=== PATIENT | male | born 1980 | race Caucasian/White ===

== ENCOUNTER 2024-07-17 11:13 | Emergency (ER) | payer BC ==
[~2024-07-17] VITALS: Ht 170.2 cm; Wt 68.0 kg
[2024-07-17] MEDS ORDERED: ACETAMINOPHEN 500 MG TABLET ONE (11:51)
[2024-07-17] MEDS ORDERED: IBUPROFEN 600 MG TABLET ONE (11:52)
[2024-07-17] MEDS: ACETAMINOPHEN 500 MG TABLET PO ONE (11:54)
[2024-07-17] MEDS: IBUPROFEN 600 MG TABLET PO ONE (11:54)
[2024-07-17 12:09] LABS: HEMATOCRIT 42.2 % (36.7-47.1); HEMOGLOBIN 14.8 g/dL (12.5-16.3); LYMPHOCYTES # (AUTO) 1.3 K/uL (0.8-4.8); LYMPHOCYTES % (AUTO) 29.1 % (20.5-51.5); MEAN CORPUSCULAR HEMOGLOBIN 32.7 uug (23.8-33.4); MEAN CORPUSCULAR HGB CONC 35 g/dL (32.5-36.3); MEAN CORPUSCULAR VOLUME 93.3 fL (73.0-96.2); MONOCYTES # (AUTO) 0.3 K/uL (0.1-1.30); MONOCYTES % (AUTO) 7.6 % (0.0-11.0); NEUTROPHILS # (AUTO) 2.8 K/uL (1.8-8.9); NEUTROPHILS % (AUTO) 61.3 % (38.5-71.5); PLATELET COUNT (AUTO) 278 K/uL (152-348); RED BLOOD CELL COUNT(AUTO) 4.53 MIL/uL (4.06-5.63); RED CELL DISTRIBUTION WIDTH 13.5 % (12.1-16.2); WHITE BLOOD COUNT (AUTO) 4.6 K/uL (3.6-10.2)
[2024-07-17 12:19] LABS: DIFFERENTIAL COMMENT 1
[2024-07-17 12:24] LABS: *BILIRUBIN,URIN NEGATIVE (NEGATIVE); *BLOOD, URINE NEGATIVE (NEGATIVE); *CLARITY,URINE CLEAR (CLEAR); *COLOR,URINE YELLOW (YELLOW); *KETONES,URINE NEGATIVE (NEGATIVE); *PROTEIN,URINE NEGATIVE (NEGATIVE); *UROBILINOGEN,URINE 0.2 E.U./dl (NORMAL); LEUKOCYTE ESTERASE ,URINE NEGATIVE (NEGATIVE); NITRITE, URINE NEGATIVE (NEGATIVE); UGLUCOSE NEGATIVE (NEGATIVE)
[2024-07-17 12:27] LABS: CALCIUM 9.3 mg/dL (8.5-10.1); CARBON DIOXIDE 26 mmol/L (21-32); CHLORIDE 104 mmol/L (98-107); CREATININE 1.1 mg/dL (0.6-1.3); GLUCOSE 75 mg/dL (74-106); SODIUM SERUM 140 mmol/L (136-145); UREA NITROGEN, BLOOD 18 mg/dL (7-18)
[2024-07-17 12:28] LABS: POTASSIUM 4.2 mmol/L (3.5-5.1)
[2024-07-17 12:33] LABS: ALANINE AMINOTRANSFERASE 22 U/L (16-63); ALKALINE PHOSPHATASE 44 U/L (50-136); ASPARTATE AMINOTRANSFERASE 28 U/L (15-37); BILIRUBIN,DIRECT 0.2 mg/dL (0.0-0.2); BILIRUBIN,TOTAL 0.6 mg/dL (0.2-1.0); CREATINE KINASE, TOTAL 154 U/L (39-308); TOTAL PROTEIN, SERUM 7.5 g/dL (6.4-8.2)
[2024-07-17] MEDS ORDERED: HYDR-3972 PO (13:28)
[2024-07-17 13:50] VITALS: BP 123/81; TEMP 98.7; O2SAT 99
== END 2024-07-17 13:51 | disposition home or self-care (01) ==
LOC: EDBD 11:13 → ER 11:13
DX: S06.0X0A Concussion without loss of consciousness, initial encounter (principal); S63.602A Unspecified sprain of left thumb, initial encounter; S70.12XA Contusion of left thigh, initial encounter; S20.211A Contusion of right front wall of thorax, initial encounter; F41.9 Anxiety disorder, unspecified; R11.0 Nausea; V23.49XA Other motorcycle driver injured in collision with car, pick-up truck or van in traffic accident, initial encounter; Y93.55 Activity, bike riding; Y92.488 Other paved roadways as the place of occurrence of the external cause; Y99.8 Other external cause status
CPT/HCPCS: 36415; 70450; 70486; 71045; 71250; 72125; 73120; 73551; 84484; 85025; 85730; A4606; A4663; A9150